=== PATIENT | female | born 1955 | race Caucasian/White ===

== ENCOUNTER 2019-04-16 06:00 | Outpatient (RCR) | payer MEDICARE, MEDICAID, SELFPAY | END 2019-05-08 23:00 | disposition home or self-care (01) | LOC: TPT 06:00 | PROVIDERS: Family Provider Family Medicine; Visit Provider Family Medicine | DX: R29.898 Other symptoms and signs involving the musculoskeletal system (principal); M62.81 Muscle weakness (generalized); R54 Age-related physical debility | CPT/HCPCS: 97110 ×6; 97112; 97530 ==

== ENCOUNTER → 2019-06-15 07:58 | Outpatient (BNVA) | payer MEDICARE, MEDICAID, SELFPAY | PROVIDERS: Family Provider Family Medicine; PCP Family Medicine; Visit Provider Anesthesiology | DX: M50.90 Cervical disc disorder, unspecified, unspecified cervical region (principal); M54.16 Radiculopathy, lumbar region; M51.36 Other intervertebral disc degeneration, lumbar region; F17.210 Nicotine dependence, cigarettes, uncomplicated; Z79.891 Long term (current) use of opiate analgesic | CPT/HCPCS: 62321; 77003; J1040; J2001 ==

== ENCOUNTER → 2019-06-28 09:55 | Outpatient (BNVA) | payer MEDICARE, MEDICAID, SELFPAY | PROVIDERS: Family Provider Family Medicine; PCP Family Medicine; Visit Provider Anesthesiology | DX: M54.16 Radiculopathy, lumbar region (principal); M51.36 Other intervertebral disc degeneration, lumbar region; M50.90 Cervical disc disorder, unspecified, unspecified cervical region; F17.210 Nicotine dependence, cigarettes, uncomplicated; Z79.891 Long term (current) use of opiate analgesic; Z71.6 Tobacco abuse counseling | CPT/HCPCS: 99213; 99214 ==

== ENCOUNTER → 2020-02-13 13:51 | Outpatient (BNVA) | payer MEDICARE, MEDICAID, SELFPAY | PROVIDERS: Family Provider Family Medicine; PCP Family Medicine; Referring Provider Family Medicine; Visit Provider Dermatology | DX: L40.9 Psoriasis, unspecified (principal); L40.0 Psoriasis vulgaris; F17.210 Nicotine dependence, cigarettes, uncomplicated | CPT/HCPCS: 99203 ==

== ENCOUNTER → 2020-12-05 13:43 | Outpatient (BNVA) | payer OTHER, MEDICAID, SELFPAY | PROVIDERS: Family Provider Family Medicine; PCP Family Medicine; Referring Provider Family Medicine; Visit Provider Anesthesiology Pain Medicine | DX: G89.29 Other chronic pain (principal); M47.816 Spondylosis without myelopathy or radiculopathy, lumbar region; M48.062 Spinal stenosis, lumbar region with neurogenic claudication; M54.16 Radiculopathy, lumbar region; M43.12 Spondylolisthesis, cervical region; M54.12 Radiculopathy, cervical region; M50.90 Cervical disc disorder, unspecified, unspecified cervical region; M24.541 Contracture, right hand | CPT/HCPCS: 99204 ==

== ENCOUNTER → 2020-12-27 12:38 | Outpatient (BNVA) | payer OTHER, MEDICAID, SELFPAY | PROVIDERS: Family Provider Family Medicine; PCP Family Medicine; Visit Provider Anesthesiology Pain Medicine | DX: G89.29 Other chronic pain (principal); M50.90 Cervical disc disorder, unspecified, unspecified cervical region; M54.12 Radiculopathy, cervical region; M54.16 Radiculopathy, lumbar region | CPT/HCPCS: 99213 ==

== ENCOUNTER 2020-12-27 13:25 | Outpatient (CLI) | payer OTHER, MEDICAID, SELFPAY ==
--- NOTE | 2020-12-27 13:32 | XR_ITS ---
WS: [id number] Lumbar spine with flexion, extension, and neutral lateral, 12/27/2020 Clinical Data: M47.816 - Spondylosis without myelopathy or radiculopathy... Comparison: None. Findings: No compression fractures or subluxation is seen. There is degenerative disc narrowing at all lumbar l evels. There is anterior osteoarthritic spurring from T12 through L4. On flexion and extension there is limitation of motion but no subluxation. There is calcification in the wall of the abdominal aorta but no aneurysm. XR/XR lumbar spine f/e only [id number] Impression: 1. Degenerative disc narrowing at all lumbar levels with multilevel osteoarthri tis. 2. On flexion and extension there is limitation of motion but no subluxation.
--- NOTE | 2020-12-27 13:32 | XR_ITS ---
WS: [id number] Lateral views of cervical spine in the flexion, extension and neutral positions. 12/27/2020 Clinical Data: M43.12 - Spondylolisthesis, cervical region Comparison: Cervical spine, 08/13/2014. Findings: There is degenerative disc narrowing at C5-C6 with anterior and posterior spurring. There is no limit ation of motion or subluxation on flexion or extension. No cervical vertebral body fractures are seen . There are surgical clips clips anterior to the trachea unchanged. XR/XR cervical spine fl/ex [id number] Impression: 1. Degenerative disc narrowing at C5-6 with osteoarthritic spurring. 2. Negative for limitation of motion or subluxation on flexion or extension.
== END 2020-12-27 13:26 | disposition home or self-care (01) ==
PROVIDERS: PCP Family Medicine; Visit Provider Anesthesiology Pain Medicine
DX: M43.12 Spondylolisthesis, cervical region (principal); M47.816 Spondylosis without myelopathy or radiculopathy, lumbar region
CPT/HCPCS: 72040; 72120

== ENCOUNTER 2021-09-12 13:40 | Outpatient (CLI) | payer MEDICARE, MEDICAID, SELFPAY ==
--- NOTE | 2021-09-12 13:52 | XR_ITS ---
WS: [email or web address] SCREENING DEXA SCAN [facility] CLINICAL INFORMATION: POST MENOPAUSAL COMPARISON: None. FINDINGS: Lumbar scoliosis convex LEFT. The L1-L4 bone mineral density measures 0.971 g/cm2. This corresponds to a T score score of -1.7 and Z score of 0.4. Left femoral neck bone mineral density measures 0.616 g/cm2. This corresponds to a T score of -3.1 an d Z score of -1.4. Right femoral neck bone mineral density measures 0.576 g/cm2. This corresponds to a T score -3.4of an d Z score of -1.7. Mean femoral neck bone mineral density measures 0.596 g/cm2. This corresponds to a T score of -3.3 an d Z score of -1.6. XR/XR DEXA axial skeleton* [id number] IMPRESSION: Osteopenia lumbar spine. Osteoporosis femoral necks. Patient's FRAX calculated 10 year probability for major osteoporotic fracture i s 30.5 % and osteoporotic hip fracture is 14.2%.
--- NOTE | 2021-09-12 13:59 | MM_ITS ---
WS: [email or web address] BILATERAL 3D TOMOSYNTHESIS DIGITAL SCREENING MAMMOGRAPHY WITH CAD CLINICAL INFORMATION: SCREENING HISTORY: Screening mammogram. No current complaints. COMPARISON: [id number] TECHNIQUE: Bilateral CC and MLO views. FINDINGS: Scattered fibroglandular densities bilaterally. A few tiny punctate and clustered calcifications. No suspicious focal mass, asymmetry, calcifications, or architectural distortion. No evidence of maligna ncy. MM/[place] [id number] IMPRESSION: BI-RADS: 2-Benign FOLLOW UP: 1 Year Follow-up Recommend return to annual screening mammography.
== END 2021-09-12 13:41 | disposition home or self-care (01) ==
LOC: RAD 13:42
PROVIDERS: PCP Family Medicine; Visit Provider Nurse Practitioner Family
DX: Z12.31 Encounter for screening mammogram for malignant neoplasm of breast (principal); Z78.0 Asymptomatic menopausal state; M85.88 Other specified disorders of bone density and structure, other site
CPT/HCPCS: 77063; 77067; 77080

== ENCOUNTER 2021-10-06 12:44 | Outpatient (CLI) | payer MEDICARE, MEDICAID, SELFPAY ==
--- NOTE | 2021-10-06 12:54 | CT_ITS ---
WS: [email or web address] LDCT LUNG CANCER SCREENING TECHNIQUE: Noncontrast CT of the chest with coronal and sagittal reformatted images. CLINICAL INFORMATION: NICOTINE DEPENDENCE COMPARISON: March 20, 2015 DLP: 84.67 mGy.cm DIvol: Mean CTDIvol: 1.60 (mGy) All CT scans at [facility] use at least one of these dose optimization techniques: automat ed exposure control; mA and/or kV adjustment per patient size (includes targeted exams where dose is matched to clinical indication); or iterative reconstruction. FINDINGS: Tiny calcified granulomas RIGHT upper lobe. Calcified anterior mediastinal and RIGHT hilar lymph node s. One or 2 tiny noncalcified nodules RIGHT upper lobe measuring 2 -3 mm. Normal caliber thoracic aor ta. Small esophageal hiatal hernia. Adrenal glands are normal. Splenic granulomas. No axillary lympha denopathy. CT/CT lung screening [id number] IMPRESSION: LUNG-RADS: 2-Benign Appearance or Behavior FOLLOW UP: 12 Month: Continue annual screening with LDCT
== END 2021-10-06 12:45 | disposition home or self-care (01) ==
LOC: RAD 12:45
PROVIDERS: PCP Family Medicine; Visit Provider Nurse Practitioner Family
DX: Z12.2 Encounter for screening for malignant neoplasm of respiratory organs (principal); F17.210 Nicotine dependence, cigarettes, uncomplicated
CPT/HCPCS: 71271

== ENCOUNTER 2022-09-08 13:06 | Oncology outpatient (recurring) (ONCR) | payer MEDICARE, MEDICAID, SELFPAY ==
[2022-09-08 13:30] VITALS: BP 134/78; PULSE 79; RESP 18; TEMP 36.4; O2SAT 98
[2022-09-08 13:40] VITALS: BP 136/71; PULSE 71; RESP 18; TEMP 36.6; O2SAT 98
[2022-09-08] MEDS: denosumab 60 mg SDV SUBCUT (13:54)
== END 2022-09-13 23:59 | disposition home or self-care (01) ==
PROVIDERS: PCP Family Medicine; Visit Provider Family Medicine
DX: M81.0 Age-related osteoporosis without current pathological fracture (principal)
CPT/HCPCS: 96372; 96401; J0897

== ENCOUNTER 2023-02-02 09:41 | Outpatient (CLI) | payer MEDICARE, MEDICAID, SELFPAY ==
--- NOTE | 2023-02-02 09:50 | CT_ITS ---
WS: [email or web address] LDCT LUNG CANCER SCREENING TECHNIQUE: Noncontrast CT of the chest with coronal and sagittal reformatted images. CLINICAL INFORMATION: HX OF TOBACCO USE COMPARISON: CT 10/06/2021 DLP: 45.89 mgy/cm DIvol: 1.[address] scans at [facility] use at least one of these dose optimization techniques: automat ed exposure control; mA and/or kV adjustment per patient size (includes targeted exams where dose is matched to clinical indication); or iterative reconstruction. FINDINGS: Thoracolumbar scoliosis. Normal caliber thoracic aorta. Calcified mediastinal and hilar lymph nodes. No axillary lymphadenopathy. Calcified granulomas. Small esophageal hernia. Adrenal glands are normal . No new suspicious pulmonary parenchymal opacities. IMPRESSION: CT/CT lung screening [id number] LUNG-RADS: 2-Benign Appearance or Behavior FOLLOW UP: 12 Month: Continue annual screening with LDCT
== END 2023-02-02 09:42 | disposition home or self-care (01) ==
LOC: RAD 09:44
PROVIDERS: PCP Family Medicine; Visit Provider Family Medicine
DX: Z87.891 Personal history of nicotine dependence (principal); Z12.2 Encounter for screening for malignant neoplasm of respiratory organs
CPT/HCPCS: 71271

== ENCOUNTER 2023-05-13 15:08 | Oncology outpatient (recurring) (ONCR) | payer MEDICARE, MEDICAID, SELFPAY ==
[2023-05-13] MEDS: denosumab 60 mg SDV SUBCUT (15:20)
[2023-05-13 15:21] VITALS: BP 141/86; PULSE 80; RESP 18; TEMP 36.6; O2SAT 98
[2023-05-13 15:22] VITALS: BP 141/86; PULSE 80; RESP 18; TEMP 36.8; O2SAT 98
== END 2023-05-16 23:59 | disposition home or self-care (01) ==
PROVIDERS: PCP Family Medicine; Visit Provider Family Medicine
DX: M81.0 Age-related osteoporosis without current pathological fracture (principal)
CPT/HCPCS: 96401; J0897

== ENCOUNTER 2023-10-13 13:28 | Outpatient (CLI) | payer MEDICARE, MEDICAID, SELFPAY ==
--- NOTE | 2023-10-13 13:30 | MM_ITS ---
WS: [email or web address] BILATERAL 3D TOMOSYNTHESIS DIGITAL SCREENING MAMMOGRAPHY WITH CAD CLINICAL INFORMATION: SCREENING HISTORY: Screening mammogram. No current complaints. COMPARISON: 2021 TECHNIQUE: Bilateral CC and MLO views. FINDINGS: The breasts are composed of heterogeneous fibroglandular density tissue, which can limit the detectio n of small underlying mass lesions. No suspicious mass, asymmetry, calcifications, or architectural d istortion. No evidence of malignancy. A few incidental punctate calcifications. Vascular calcificatio ns. MM/[place] [id number] IMPRESSION: BI-RADS: 2-Benign FOLLOW UP: 1 Year Follow-up Recommend return to annual screening mammography.
== END 2023-10-13 13:29 | disposition home or self-care (01) ==
LOC: MOBLMAM 13:33
PROVIDERS: PCP Family Medicine; Visit Provider Family Medicine
DX: Z12.31 Encounter for screening mammogram for malignant neoplasm of breast (principal); R92.323 Mammographic fibroglandular density, bilateral breasts
CPT/HCPCS: 77063; 77067

== ENCOUNTER 2024-02-07 08:35 | Outpatient (CLI) | payer MEDICARE, MEDICAID, SELFPAY ==
--- NOTE | 2024-02-07 08:40 | CT_ITS ---
WS: [email or web address] LDCT LUNG CANCER SCREENING HISTORY: HX OF TOBACCO USE TECHNIQUE: Axial imaging performed from the apices to 1 cm below the costophrenic angles. Coronal and sagittal reformats are submitted with axial MIP series. All CT scans at [facility] use at least one of these dose optimization techniques: automated exposure control; mA and/or kV adjustment per patient size (includes targeted exams where dose is matched to clinical indication); or iterativ e reconstruction. DLP: 42.72 mGy.cm DIvol: Mean CTDIvol: 0.70 (mGy) COMPARISON: 02/02/2023 Diagnostic quality: Satisfactory Lungs: Moderate pulmonary hyperexpansion. No new or enlarging suspicious mass or pulmonary nodule. Th ere are a few scattered granulomata. 3 mm pleural nodule at the LEFT lung base. No endobronchial lesi ons. Heart: Normal size heart with no pericardial effusion.. Other findings: Very mild atherosclerosis aorta. Mediastinal and hilar lymph nodes are reidentified a nd stable. It would be difficult to exclude hilar lymph nodes. Small hiatal hernia. Mild thoracic cur vature. CT/CT lung screening [id number] IMPRESSION: LUNG-RADS: 2-Benign Appearance or Behavior FOLLOW UP: 12 Month: Continue annual screening with LDCT OTHER FINDINGS (S MODIFIER): None.
== END 2024-02-07 08:36 | disposition home or self-care (01) ==
LOC: RAD 08:36
PROVIDERS: PCP Family Medicine; Visit Provider Family Medicine
DX: Z12.2 Encounter for screening for malignant neoplasm of respiratory organs (principal); Z87.891 Personal history of nicotine dependence; J98.4 Other disorders of lung; R91.1 Solitary pulmonary nodule; K44.9 Diaphragmatic hernia without obstruction or gangrene
CPT/HCPCS: 71271

== ENCOUNTER → 2024-03-20 09:37 | Outpatient (BNVA) | payer MEDICARE, MEDICAID, SELFPAY | PROVIDERS: PCP Family Medicine; Referring Provider Family Medicine; Visit Provider Nurse Practitioner Family | DX: D48.5 Neoplasm of uncertain behavior of skin (principal); L72.0 Epidermal cyst; L40.0 Psoriasis vulgaris; B35.1 Tinea unguium; I78.8 Other diseases of capillaries; L81.4 Other melanin hyperpigmentation | CPT/HCPCS: 10060; 11104; 99204 ==

== ENCOUNTER → 2024-04-07 10:38 | Outpatient (BNVA) | payer MEDICARE, MEDICAID, SELFPAY | PROVIDERS: PCP Family Medicine; Visit Provider Nurse Practitioner Family | DX: D22.62 Melanocytic nevi of left upper limb, including shoulder (principal); L40.0 Psoriasis vulgaris | CPT/HCPCS: 99214 ==

== ENCOUNTER → 2024-09-07 11:10 | Outpatient (BNVA) | payer MEDICARE, MEDICAID, SELFPAY | PROVIDERS: PCP Family Medicine; Visit Provider Nurse Practitioner Family | DX: L40.0 Psoriasis vulgaris (principal); R20.9 Unspecified disturbances of skin sensation; L85.3 Xerosis cutis; L29.89 Other pruritus; I78.8 Other diseases of capillaries; L81.4 Other melanin hyperpigmentation; B35.1 Tinea unguium | CPT/HCPCS: 99214 ==

== ENCOUNTER 2024-09-28 13:38 | Oncology outpatient (recurring) (ONCR) | payer MEDICARE, MEDICAID, SELFPAY ==
[2024-09-28] MEDS: denosumab 60 mg SDV SUBCUT (14:18)
== END 2024-10-14 23:59 | disposition home or self-care (01) ==
PROVIDERS: PCP Family Medicine; Visit Provider Family Medicine
DX: M81.0 Age-related osteoporosis without current pathological fracture (principal); Z79.899 Other long term (current) drug therapy
CPT/HCPCS: 96372; J0897

== ENCOUNTER → 2024-10-12 14:15 | Outpatient (BNVA) | payer MEDICARE, MEDICAID, SELFPAY | PROVIDERS: PCP Family Medicine; Visit Provider Nurse Practitioner Family | DX: L40.0 Psoriasis vulgaris (principal); R20.9 Unspecified disturbances of skin sensation; L85.3 Xerosis cutis; L29.89 Other pruritus; I78.8 Other diseases of capillaries; L81.4 Other melanin hyperpigmentation; B35.1 Tinea unguium | CPT/HCPCS: 99214 ==

== ENCOUNTER 2024-11-14 05:00 | Outpatient (RCR) | payer MEDICARE, MEDICAID, SELFPAY | END 2024-12-14 23:59 | disposition home or self-care (01) | LOC: TPT 05:00 | PROVIDERS: PCP Family Medicine; Visit Provider Anesthesiology Pain Medicine | DX: M54.16 Radiculopathy, lumbar region (principal) | CPT/HCPCS: 97161 ==

== ENCOUNTER → 2024-12-04 13:44 | Outpatient (BNVA) | payer MEDICARE, MEDICAID, SELFPAY | PROVIDERS: PCP Family Medicine; Referring Provider Family Medicine; Visit Provider Anesthesiology Pain Medicine | DX: M54.50 Low back pain, unspecified (principal); M54.2 Cervicalgia; M54.9 Dorsalgia, unspecified; G89.29 Other chronic pain; M54.16 Radiculopathy, lumbar region; M47.816 Spondylosis without myelopathy or radiculopathy, lumbar region | CPT/HCPCS: 72110; 99204 ==

== ENCOUNTER 2024-12-11 11:50 | Outpatient (CLI) | payer MEDICARE, MEDICAID, SELFPAY ==
--- NOTE | 2024-12-11 12:15 | MR_ITS ---
WS: [email or web address] MRI LUMBAR SPINE NONCONTRAST HISTORY: M54.16 - Radiculopathy, lumbar region COMPARISON: None available. TECHNIQUE: Sagittal and axial multisequence imaging is submitted. Cervical and thoracic curvature. Thoracic curvature to the RIGHT. Moderate levoscoliosis lumbar spine Levoscoliosis has progressed since prior study from 2012. Disc bases are narrowed and desiccated. Retrolisthesis of L2 by 2 mm. Marrow edema in the L2 and L3 endplates. No fracture. Conus terminates normally at L1-2 disc level. L1-L2: Diffuse annular disc bulging with ligamentum flavum and facet arthritis. Mild bilateral subarticular recess and foraminal stenosis. Small amount of fluid in the LEFT facet joint. L2-L3: Diffuse annular disc bulging with encroachment upon the subarticular recesses. Facet joint arthropathy and ligamentum flavum hypertrophy, LEFT greater than RIGHT. No central stenosis. Subarticular recess and moderate to severe bilateral foraminal stenosis. L3-L4: Annular disc bulging with a LEFT foraminal broad-based disc protrusion. This contacts the traversing L4 nerve roots, LEFT greater than RIGHT. Moderate ligamentum flavum and facet arthritis. Moderate bilateral foraminal stenosis. L4-L5: Diffuse annular disc bulging, asymmetric to the LEFT. Central disc protrusion. Marked ligamentum flavum and facet arthritis. Mild subarticular recess stenosis. Disc encroaches the traversing L5 nerve roots. Moderate LEFT and mild RIGHT foraminal stenosis. L5-S1: Diffuse annular disc bulging with asymmetric disc bulging to the LEFT. LEFT foraminal disc protrusion with annular fissures. Moderate to severe LEFT and mild RIGHT foraminal stenosis. Paravertebral soft tissues are negative. MR/MR lumbar spine wo con* [id number] IMPRESSION: 1. Progression degenerative levoscoliosis lumbar spine and degenerative disc d isease. 2. Progression of bilateral facet joint arthropathy and ligamentum flavum hype rtrophy since 2012. 3. New marrow edema involving the adjacent endplates of L2 and L3. 4. No fracture. 5. Severe moderate to severe LEFT foraminal stenosis at L5-S1 and mild RIGHT f oraminal stenosis. 6. L4-5: Moderate LEFT and mild RIGHT foraminal stenosis and mild subarticular recess stenosis. Central disc protrusion. 7. L3-4: LEFT foraminal broad-based disc protrusion. Moderate bilateral forami nal stenosis. 8. L2-3: Mild subarticular recess encroachment by disc bulging with moderate t o severe bilateral foraminal stenosis. 9. L1-2: Mild subarticular recess and foraminal stenosis.
== END 2024-12-11 11:51 | disposition home or self-care (01) ==
LOC: RAD 11:51
PROVIDERS: PCP Family Medicine; Visit Provider Anesthesiology Pain Medicine
DX: M51.16 Intervertebral disc disorders with radiculopathy, lumbar region (principal); M48.061 Spinal stenosis, lumbar region without neurogenic claudication; M48.07 Spinal stenosis, lumbosacral region
CPT/HCPCS: 72148

== ENCOUNTER 2024-12-15 05:00 | Outpatient (RCR) | payer MEDICARE, MEDICAID, SELFPAY | END 2025-01-14 23:59 | disposition home or self-care (01) | LOC: TPT 05:00 | PROVIDERS: PCP Family Medicine; Visit Provider Anesthesiology Pain Medicine | DX: M54.16 Radiculopathy, lumbar region (principal) | CPT/HCPCS: 97110 ==

== ENCOUNTER → 2024-12-25 13:19 | Outpatient (BNVA) | payer MEDICARE, MEDICAID, SELFPAY | PROVIDERS: PCP Family Medicine; Visit Provider Anesthesiology Pain Medicine | DX: M54.2 Cervicalgia (principal); M54.9 Dorsalgia, unspecified; G89.29 Other chronic pain; M54.16 Radiculopathy, lumbar region; M47.816 Spondylosis without myelopathy or radiculopathy, lumbar region; F17.210 Nicotine dependence, cigarettes, uncomplicated | CPT/HCPCS: 99214 ==

== ENCOUNTER → 2025-01-23 10:05 | Outpatient (BNVA) | payer MEDICARE, MEDICAID, SELFPAY | PROVIDERS: PCP Family Medicine; Visit Provider Anesthesiology Pain Medicine | DX: M54.2 Cervicalgia (principal); M54.9 Dorsalgia, unspecified; G89.29 Other chronic pain; M54.16 Radiculopathy, lumbar region; M47.816 Spondylosis without myelopathy or radiculopathy, lumbar region | CPT/HCPCS: 99214 ==

== ENCOUNTER → 2025-02-07 09:06 | Outpatient (BNVA) | payer MEDICARE, MEDICAID, SELFPAY | PROVIDERS: PCP Family Medicine; Visit Provider Anesthesiology Pain Medicine | DX: M54.16 Radiculopathy, lumbar region (principal) | CPT/HCPCS: 64483; 64484; J1100; J3490; J9999 ==

== ENCOUNTER → 2025-02-20 11:31 | Outpatient (BNVA) | payer MEDICARE, MEDICAID, SELFPAY | PROVIDERS: PCP Family Medicine; Visit Provider Anesthesiology Pain Medicine | DX: M25.519 Pain in unspecified shoulder (principal) | CPT/HCPCS: 73030; 99214 ==

== ENCOUNTER → 2025-03-21 13:19 | Outpatient (BNVA) | payer MEDICARE, MEDICAID, SELFPAY | PROVIDERS: PCP Family Medicine; Visit Provider Anesthesiology Pain Medicine | DX: M54.16 Radiculopathy, lumbar region (principal) | CPT/HCPCS: 64483; 64484; J1100; J3490; J9999 ==

== ENCOUNTER 2025-03-27 13:43 | Oncology outpatient (recurring) (ONCR) | payer MEDICARE, MEDICAID, SELFPAY ==
[2025-03-27] MEDS: denosumab 60 mg SDV (Infusion Clinic Only) SUBCUT (14:15)
== END 2025-04-15 23:59 | disposition home or self-care (01) ==
LOC: ONCMED 13:43
PROVIDERS: PCP Family Medicine; Visit Provider Family Medicine
DX: M81.0 Age-related osteoporosis without current pathological fracture (principal); Z79.899 Other long term (current) drug therapy
CPT/HCPCS: 96372; J0897

== ENCOUNTER 2025-04-03 08:35 | Outpatient (CLI) | payer MEDICARE, MEDICAID, SELFPAY ==
--- NOTE | 2025-04-03 08:45 | CT_ITS ---
WS: [email or web address] LDCT LUNG CANCER SCREENING TECHNIQUE: Noncontrast CT of the chest with coronal and sagittal reformatted images. CLINICAL INFORMATION: NICOTINE DEPENDENCE,CIGARETTES COMPARISON: 2023 DLP: 43.71 mGy.cm DIvol: Mean CTDIvol: 0.70 (mGy) All CT scans at [facility] use at least one of these dose optimization techniques: automated exposure control; mA and/or kV adjustment per patient size (includes targeted exams where dose is matched to clinical indication); or iterative reconstruction. FINDINGS: Stable 3 mm pleural-based nodule LEFT lower lobe. A few small noncalcified nodules RIGHT upper lobe. No new suspicious pulmonary parenchymal opacities. A few tiny calcified granulomas. Normal caliber thoracic aorta. Calcified anterior mediastinal and RIGHT hilar lymph nodes. Small esophageal hiatal hernia. No axillary lymphadenopathy. Mild thoracic curve. Mild thoracic kyphosis. CT/CT lung screening [id number] IMPRESSION: LUNG-RADS: 2-Benign Appearance or Behavior FOLLOW UP: 12 Month: Continue annual screening with LDCT
== END 2025-04-03 08:36 | disposition home or self-care (01) ==
LOC: RAD 08:37
PROVIDERS: PCP Family Medicine; Visit Provider Family Medicine
DX: Z12.2 Encounter for screening for malignant neoplasm of respiratory organs (principal); F17.210 Nicotine dependence, cigarettes, uncomplicated; R91.8 Other nonspecific abnormal finding of lung field; R59.0 Localized enlarged lymph nodes; K44.9 Diaphragmatic hernia without obstruction or gangrene; M43.8X4 Other specified deforming dorsopathies, thoracic region; M40.294 Other kyphosis, thoracic region
CPT/HCPCS: 71271

== ENCOUNTER 2025-04-16 13:36 | Oncology outpatient (recurring) (ONCR) | payer MEDICARE, MEDICAID, SELFPAY | END 2025-05-16 23:59 | disposition home or self-care (01) | LOC: ONCMED 04-20 09:17 | PROVIDERS: PCP Family Medicine; Visit Provider Anesthesiology Pain Medicine | DX: M81.0 Age-related osteoporosis without current pathological fracture (principal); Z79.899 Other long term (current) drug therapy; M47.892 Other spondylosis, cervical region; M43.12 Spondylolisthesis, cervical region; M50.322 Other cervical disc degeneration at C5-C6 level; M50.323 Other cervical disc degeneration at C6-C7 level; M54.9 Dorsalgia, unspecified; G89.29 Other chronic pain; M54.16 Radiculopathy, lumbar region; M47.816 Spondylosis without myelopathy or radiculopathy, lumbar region | CPT/HCPCS: 72040; 99214 ==

== ENCOUNTER → 2025-04-30 12:49 | Outpatient (BNVA) | payer MEDICARE, MEDICAID, SELFPAY | PROVIDERS: PCP Family Medicine; Visit Provider Specialist | DX: G56.03 Carpal tunnel syndrome, bilateral upper limbs (principal); M54.2 Cervicalgia; M54.9 Dorsalgia, unspecified; G89.29 Other chronic pain | CPT/HCPCS: 73110; 99204 ==